=== PATIENT | female | born 1965 | race Caucasian/White ===

== ENCOUNTER → 2018-04-21 07:04 | Outpatient (CLI) | payer OTHER, SELFPAY ==
--- NOTE | 2018-04-21 07:07 | CT_ITS ---
STUDY: CT BRAIN WITHOUT CONTRAST REASON FOR EXAM: Female, 52 years old. Left occipital and temporal headaches. History of migraines. RADIATION DOSAGE (If Supplied By Facility): CTDIvol = ( 44.99 ) mGy, DLP = ( 745.49 ) mGycm TECHNIQUE: Transaxial CT imaging of the brain was performed without administration of intravenous contrast material. Individualized dose optimization techniques were used for this CT. COMPARISON: None. FINDINGS: Normal soft tissue structures. Normal calvarium. Normal size ventricles and extra-axial spaces for the patient's age. Normal white matter tracts of the cerebral hemispheres. Normal basal ganglia and thalami. Normal brainstem. Normal cerebellum. There is no intracranial hemorrhage. There are no findings of an acute ischemic infarction. Normal visualized paranasal sinuses. CT/Brain/Head without Contrast IMPRESSION: Normal unenhanced CT scan of the brain. Electronically Signed: Rizwan Odonnell MD at 10:09 EDT Tel [phone], Service support ,
== END ==
PROVIDERS: Family Provider Internal Medicine; PCP Internal Medicine; Visit Provider Internal Medicine
DX: R51 Headache (principal)
CPT/HCPCS: 70450

== ENCOUNTER → 2018-09-16 08:15 | Outpatient (CLI) | payer OTHER, SELFPAY ==
--- NOTE | 2018-09-16 08:17 | RAD_ITS ---
STUDY: X-RAY - RIGHT SHOULDER REASON FOR EXAM: Female, 53 years old. Chronic pain. Recent fall. TECHNIQUE: 3 view(s) of the shoulder. COMPARISON: None. FINDINGS: Normal glenohumeral articulation. Normal acromioclavicular joint. Normal acromion. Normal humeral head and visualized proximal humerus. The soft tissue structures are unremarkable. Normal visualized pulmonary apex. RAD/Shoulder min 2 Views IMPRESSION: Normal x-ray examination of the shoulder. Electronically Signed: Rizwan Odonnell MD at 14:11 EST Tel [phone], Service support ,
== END ==
PROVIDERS: Family Provider Internal Medicine; PCP Internal Medicine; Referring Provider Physician Assistant; Visit Provider Physician Assistant
DX: M25.511 Pain in right shoulder (principal)
CPT/HCPCS: 73030

== ENCOUNTER → 2018-09-24 07:12 | Outpatient (CLI) | payer OTHER, SELFPAY ==
--- NOTE | 2018-09-24 07:13 | MRI_ITS ---
STUDY: MRI RIGHT SHOULDER REASON FOR EXAM: Pain extending down right arm, limited range of motion. TECHNIQUE: Standardized fat and water weighted pulse sequences were obtained in all 3 orthogonal planes. COMPARISON: Radiographs 09/16/2018. FINDINGS: There is mild supraspinatus tendinosis and a very small intrasubstance partial-thickness tear of the distal anterior supraspinatus tendon at the greater tuberosity insertion (T2 coronal image 14). Normal subscapularis tendon. Normal teres minor tendon. Normal supraspinatus muscle. Normal infraspinatus muscle. Normal subscapularis muscle. Normal teres minor muscle. Normal glenohumeral articulation. There is an enchondroma in the humeral head (T2 coronal image 6) measuring 1.4 cm in length. Normal biceps labral complex. Normal intracapsular long biceps tendon. Normal labrum. Normal capsulo- ligamentous complex. There is acromioclavicular arthrosis with a small undersurface osteophyte of the distal clavicle effacing the subacromial fat (T2 sagittal image 16). There is a Type I morphology (flat undersurface), with a neutral orientation. There is a small volume of subacromial-subdeltoid bursal fluid (T2 coronal images 6-13). Normal visualized coracohumeral and coracoacromial ligaments. Normal deltoid muscle. Normal trapezius muscle. MRI/Upper Ext Joint Only(Routine) IMPRESSION: Very small intrasubstance partial-thickness tear and mild tendinosis of the supraspinatus tendon. Acromioclavicular arthrosis. Mild subacromial-subdeltoid bursitis. Enchondroma in the humeral head. No demonstrated tear of the long biceps tendon. Electronically Signed: Baldemar Renee MD at 8:34 EST Tel , Service support ,
--- OUTSIDE RECORDS SUMMARY | 2018-11-10 02:26 | XMS RPT_ITS ---
:1965 External Reference #:[id number] Author Organization OHIP Care Team Providers Name Role Phone SYDNEY LOPEZ Attending Unavailable SYDNEY LOPEZ Referring Unavailable SYDNEY LOPEZ Referring Unavailable Wayt, Chas Attending Unavailable Wayt, Chas Referring Unavailable Shayna, Muna Primary Care Unavailable Wayt, Chas Attending Unavailable Shayna, Muna Referring Unavailable Shayna, Muna Attending Unavailable Shayna, Muna Referring Unavailable Shayna, Muna Primary Care Unavailable Wayt, Chas Attending Unavailable Shayna, Muna Referring Unavailable Wayt, Chas Attending Unavailable Wayt, Chas Referring Unavailable Shayna, Muna Primary Care Unavailable PROBLEMS PROBLEMS DATE TYPE CONDITION / CODE ATTENDING STATUS SOURCE 10/22/2018 Active Unknown / [place] Active [facility] UNK(Unknown) GARCIA, [facility] SYDNEY Repository 09/24/2018 Unknown M75.101 - [place] Active [place] [facility] rotator cuff tear Hospital or rupture of Repository right shoulder, not specified as traumatic / M75.101(ICD-10) 09/16/2018 Unknown M25.511 - Pain in [place] Active [facility] right shoulder / [facility] M25.511(ICD-10) Hospital Repository 08/06/2018 Active Encounter for NA Active [facility] screening [facility] mammogram for Repository malignant neoplasm of breast / Z12.31(ICD-10) 04/21/2018 Unknown R51 - Headache / Shayna, Active [facility] R51(ICD-10) [facility] Repository PROCEDURES PROCEDURES No Procedure Records FoundRESULTS RESULTS PROGRESS Observed: 10/22/2018 Status: COMPLETED Source: [place] 8:54 AM [facility] RE[facility]IT[facility] HNO ID: [id number] Author: Sydney Garcia Service: (none) Author Type: Physician Type: Progress Notes Filed: 10/22/2018 9:10 AM Note Text: Leelee Pineda is a 53 year old who presents for her annual gynecologic exam without complaints. Postmenopausal: Yes since age 52 LMP 09/2017 HRT use: No. Last Pap: 2016 normal HPV: 2016 negative History of abnormal pap: No Last mammogram: 2017 normal History of abnormal mammogram: No Sexually active: Yes History of STDS: None Patient concerns for STD exposure: No. Pain with intercourse: No Postcoital bleeding: Yes - one time light pink spotting Hot flashes: Yes Night sweats: Yes Vaginal dryness: Yes Diet: balanced- low carb Exercise: routine Obstetric History T2 L2 SAB0 TAB0 Ectopic1 Multiple0 Live Births0 PAST MEDICAL HISTORY Diagnosis Date - Abdominal pain, unspecified site Cholecystitis - no stones - Acute gastritis without mention of hemorrhage - Acute, but ill-defined, cerebrovascular disease 2002 TIAs - Heart attack (HCC) - Melanoma of skin, site unspecified 2009 Malignant melanoma in situ-- - Migraine, unspecified, with intractable migraine, so stated, without mention of status migrainosus Migraine - Occlusion and stenosis of carotid artery without mention of cerebral infarction Carotid Artery Occlusion - no infarct - PMH - PAST MEDICAL HISTORY OF Insulin intollerent - Snoring PAST SURGICAL HISTORY Procedure Laterality Date - COLONOSCOP W/ OR W/O BRSH SPEC 09/21/16 Colonoscopy - EGD W/O BRSH SPECIMEN W/BX 11/22/09 Minimal antral gastritis - LIGATE FALLOPIAN TUBE Tubal ligation - MAL LESION TRUNK,ARM,LEG 0.6-1.0CM 01/03/10 Re-excision right upper ant chest melanoma in situ - MAL LESION TRUNK,ARM,LEG 1.1-2.0 CM 11/23/09 Exc. right upper ant. chest skin lesion - RIGHT HEART CATHETERIZATION Cardiac cath, R heart [normal][ - STEREO LOC FOR CORE BRST BX LT 5-18-11 LEFT FAMILY HISTORY Problem Relation Age of Onset - Cancer Mother Lung - other (Lupus) Mother - Heart Maternal Grandmother - Hypertension Maternal Grandmother - Heart Maternal Grandfather - other (Depression) Other Both Maternal Grandparents - Breast Cancer Maternal Aunt - Breast Cancer Maternal Aunt SOCIAL HISTORY Social History Substance Use Topics - Smoking status: Former Smoker - Smokeless tobacco: Never Used - Alcohol use 1.5 oz/week 1 Glasses of Wine (5oz) per week Comment: Seldom REVIEW OF SYSTEMS Abdomen: No bloating, early satiety, indigestion, or increased flatulence. ++ constipation Bladder: No dysuria, gross hematuria, urinary frequency, urinary urgency, or incontinence Breast: No breast lumps, nipple d/c, overlying skin changes, redness or skin retraction and does report some breast tenderness Allergies and current medication updated:Yes EXAM: BP 128/84 Ht 5' 5 (1.65m) Wt 175 lb (79.4kg) LMP 07/08/2016 BMI 29.12 kg/(m2). GENERAL: pleasant, female in no apparent distress HEENT: Normocephalic, atraumatic, mucus membranes moist and no lesions NECK: Supple, full range of motion, no adenopathy and thyroid normal DERMATOLOGY: Normal, without lesions, non-icteric and non-hirsute BREAST: soft, non-tender, symmetric, no dominant mass, normal nipple-areolar complex, no lymphadenopathy and no nipple discharge ABDOMEN: soft, non-tender and no masses PELVIC: external genitalia normal, normal Bartholin's glands, urethra, [place]'s glands, no vulvar lesions, no cervical lesions, good vaginal support, physiologic discharge present, normal appearing perineal body and perianal region BIMANUAL: uterus normal size, shape and consistency, no adnexal masses and non-tender RECTOVAGINAL: deferred. NEURO: alert and oriented x3,exam grossly non-focal EXTREMITIES: normal ASSESSMENT/PLAN: 1) Health maintenance: Pap/HPV up to date. Mammogram ordered Mammogram up to date Nutrition, exercise and routine health maintenance exams reviewed. Calcium/Vitamin D supplementation information provided. Colon cancer screening: up to date with screening 2) Follow up one year or sooner as needed Sydney Vazquez MD PROGRESS Observed: 10/22/2018 Status: COMPLETED Source: [place] 8:42 AM [facility] HNO ID: [id number] Author: Kathy Spicer Ma Service: (none) Author Type: (none) Type: Progress Notes Filed: 10/22/2018 9:10 AM Note Text: [place] Machine Operator offered: Patient declines. CNOV Observed: 10/22/2018 Status: COMPLETED Source: [place] 8:40 AM [facility] Office Visit (WOOB) LEELEE PINEDA ([id number]) 1965 F Date Time Provider Department 10/22/18 8:40 AM SYDNEY LOPEZ WOKEYA During your visit today, we recorded the following information about you: Blood pressure Weight Height 128/84 79.4 kg 1.651 m Kathy Zhang Coleman Ma 10/22/2018 9:10 AM Signed [place] Machine Operator offered: Patient declines. Sydney Vazquez MD 10/22/2018 9:10 AM Signed Leelee Pineda is a 53 year old who presents for her annual gynecologic exam without complaints. Postmenopausal: Yes since age 52 LMP 09/2017 HRT use: No. Last Pap: 2015 normal HPV: 2015 negative History of abnormal pap: No Last mammogram: 2017 normal History of abnormal mammogram: No Sexually active: Yes History of STDS: None Patient concerns for STD exposure: No. Pain with intercourse: No Postcoital bleeding: Yes - one time light pink spotting Hot flashes: Yes Night sweats: Yes Vaginal dryness: Yes Diet: balanced- low carb Exercise: routine Obstetric History T2 L2 SAB0 TAB0 Ectopic1 Multiple0 Live Births0 PAST MEDICAL HISTORY Diagnosis Date - Abdominal pain, unspecified site Cholecystitis - no stones - Acute gastritis without mention of hemorrhage - Acute, but ill-defined, cerebrovascular disease 2002 TIAs - Heart attack (HCC) - Melanoma of skin, site unspecified 2009 Malignant melanoma in situ-- - Migraine, unspecified, with intractable migraine, so stated, without mention of status migrainosus Migraine - Occlusion and stenosis of carotid artery without mention of cerebral infarction Carotid Artery Occlusion - no infarct - PMH - PAST MEDICAL HISTORY OF Insulin intollerent - Snoring PAST SURGICAL HISTORY Procedure Laterality Date - COLONOSCOP W/ OR W/O BRS SPEC 09/21/16 Colonoscopy - EGD W/O [facility] SPECIMEN W/BX 11/22/09 Minimal antral gastritis - LIGATE FALLOPIAN TUBE Tubal ligation - MAL LESION TRUNK,ARM,LEG 0.6-1.0CM 01/03/10 Re-excision right upper ant chest melanoma in situ - MAL LESION TRUNK,ARM,LEG 1.1-2.0 CM 11/23/09 Exc. right upper ant. chest skin lesion - RIGHT HEART CATHETERIZATION Cardiac cath, R heart [normal][ - STEREO LOC FOR CORE BRST BX LT 5-18-11 LEFT FAMILY HISTORY Problem Relation Age of Onset - Cancer Mother Lung - other (Lupus) Mother - Heart Maternal Grandmother - Hypertension Maternal Grandmother - Heart Maternal Grandfather - other (Depression) Other Both Maternal Grandparents - Breast Cancer Maternal Aunt - Breast Cancer Maternal Aunt SOCIAL HISTORY Social History Substance Use Topics - Smoking status: Former Smoker - Smokeless tobacco: Never Used - Alcohol use 1.5 oz/week 1 Glasses of Wine (5oz) per week Comment: Seldom REVIEW OF SYSTEMS Abdomen: No bloating, early satiety, indigestion, or increased flatulence. ++ constipation Bladder: No dysuria, gross hematuria, urinary frequency, urinary urgency, or incontinence Breast: No breast lumps, nipple d/c, overlying skin changes, redness or skin retraction and does report some breast tenderness Allergies and current medication updated:Yes EXAM: BP 128/84 Ht 5' 5 (1.65m) Wt 175 lb (79.4kg) LMP 07/08/2016 BMI 29.12 kg/(m2). GENERAL: pleasant, female in no apparent distress HEENT: Normocephalic, atraumatic, mucus membranes moist and no lesions NECK: Supple, full range of motion, no adenopathy and thyroid normal DERMATOLOGY: Normal, without lesions, non-icteric and non-hirsute BREAST: soft, non-tender, symmetric, no dominant mass, normal nipple-areolar complex, no lymphadenopathy and no nipple discharge ABDOMEN: soft, non-tender and no masses PELVIC: external genitalia normal, normal Bartholin's glands, urethra, [place]'s glands, no vulvar lesions, no cervical lesions, good vaginal support, physiologic discharge present, normal appearing perineal body and perianal region BIMANUAL: uterus normal size, shape and consistency, no adnexal masses and non-tender RECTOVAGINAL: deferred. NEURO: alert and oriented x3,exam grossly non-focal EXTREMITIES: normal ASSESSMENT/PLAN: 1) Health maintenance: Pap/HPV up to date. Mammogram ordered Mammogram up to date Nutrition, exercise and routine health maintenance exams reviewed. Calcium/Vitamin D supplementation information provided. Colon cancer screening: up to date with screening 2) Follow up one year or sooner as needed MD Sydney Pastor MD 10/22/2018 9:00 AM Signed Calcium and Vitamin D Supplementation (from the National Institutes of Health Office of Dietary Supplements 2010) Calcium is required by the body for blood vessel, muscle, hormone and nerve functioning. Most of the body's calcium is stored in the bones and teeth where it supports structure and function. Bone is continuously broken down and reformed. When bone breakdown exceeds formation, especially in postmenopausal women, bone loss can increase the risk of osteoporosis and fractures. In addition to low calcium intake, women who smoke, have a family history of osteoporosis, are thin, or , or who take certain medications such as cancer chemotherapy, seizure mediations and steroids are at increased risk of osteoporosis. The calcium requirements in women change with age. The National Institutes of Health (NIH) recommends: 1000mg elemental calcium for premenopausal women age 19-50 1200mg elemental calcium for postmenopausal women and all women over 50 Milk, yogurt, and cheese are rich natural sources of calcium and are the major food contributors in the [place]. For example, 8oz of milk (whole, lowfat or skim) contains about 300mg calcium, 8oz of yogurt contains 415mg. Nondairy sources include salmon and sardines and vegetables, such as Latvian cabbage, kale, and broccoli. Foods fortified with calcium include many fruit juices, tofu and cereals. For more food calcium content information, visit http://ods.od.nih.gov/factsheets/calcium. Calcium supplements come in several different forms. Remember that the recommendations are for millgrams (mg) of elemental calcium which may be less than the total weight of the supplement. The amount of elemental calcium is required to be printed on the label. Calcium carbonate is the least expensive form. It must be taken on a full stomach to be properly absorbed. Some patients may experience gas or constipation. Calcium phosphate and calcium citrate may be taken either with or without food and tend to have less side effects but are generally more expensive. Because of its ability to neutralize stomach acid, calcium carbonate is found in some ctzu-psk-gsvlyqn antacid products, such as Tums? and Rolaids?. Depending on its strength, each chewable pill or softchew provides 200 to 400 mg of elemental calcium. The percentage of calcium absorbed depends on the total amount of elemental calcium consumed at one time. Absorption is highest in doses <500mg. So a woman who takes 1,000mg/day of calcium from supplements should split the dose and take 500mg at two separate times during the day. Too much calcium can cause kidney stones, constipation, difficulty absorbing other nutrients and calcium buildup in blood vessels. Women under 50 should not exceed 2500mg/day (2000mg/day for women over 50) of calcium from food and supplements. Excessive alcohol and caffeine intake can inhibit absorption of calcium. Calcium can reduce the absorption of some medications if taken at the same time of day (bisphosphonates, thyroid medication, Phenytoin and other seizure medications, some antibiotics and iron supplements). Vitamin D promotes calcium absorption in the gut and maintains adequate blood levels of calcium and phosphate for normal bone growth and bone remodeling. Vitamin D also helps regulate cell growth as well as nerve, muscle and immune system function. Vitamin D is produced in the skin as a result of ultraviolet sunlight rays and must be altered in the liver and kidney to become its active form. Recommended intake according to the National Institutes of Health is 600 International Units (IU) for girls and women ages 1-70 and 800 IU for women over 70. Very few foods in nature contain vitamin D. The flesh of fatty fish (such as salmon, tuna, and mackerel) and fish liver oils are among the best sources. Small amounts of vitamin D are found in beef liver, cheese, mushrooms and egg yolks. Most people meet at least some of their vitamin D needs through exposure to sunlight. Season, time of day, length of day, cloud cover, smog, skin melanin content, and sunscreen are among the factors that affect UV radiation exposure and vitamin D synthesis. Despite the importance of the sun for vitamin D synthesis, it is prudent to limit exposure of skin to sunlight and avoid tanning beds. UV radiation is a carcinogen responsible for most of the estimated 1.5 million skin cancers that occur annually in the [place]. Lifetime cumulative UV damage to skin is also responsible for some age-associated dryness and other cosmetic changes. In supplements and fortified foods, vitamin D is available in two forms, D2 (ergocalciferol) and D3 (cholecalciferol). The two are equivalent at normal supplement doses. For women who require high supplement doses because of vitamin D deficiency, D3 may work better to raise blood levels. Some medications can prevent proper absorption of Vitamin D. These include laxatives, corticosteroids like prednisone, the seizure drugs phenobarbital and phenytoin, the weight-loss drug orlistat ( Xenical? and AlliTM) and the cholesterol-lowering drug cholestyramine (Questran?, LoCholest?, and Prevalite?). Talk to your doctor about adjusting your recommended daily vitamin D dosage if you take these medications. You should not exceed 4000 mg of vitamin D supplementation daily unless specifically prescribed by your doctor. ACOG Screening Guidelines (2015) The following health screening schedule is recommended by the [place] [employer] (ACOG). Some of these tests may be ordered or performed by your primary care doctor. Pap test screening The pap test looks at cells on the cervix (the opening from the vagina to the uterus) to look for cancer or pre-cancerous changes. These changes are caused by the human papillomavirus (HPV). Studies estimate that half of all women will test positive for this virus within 3 years of starting sexual activity. For young women with a normal immune system, 90% of HPV infections will resolve within 2 years. There is a vaccine available against some forms of HPV. This is recommended for girls and women age 9-26 and is a series of 3 injections over 6 months. Because this vaccine does not protect against all HPV types which can cause cervical cancer, women who received the vaccine still need pap tests. Pap smear screening should be started at age 21. The pap test should be done every 3 years from age 21-29. From age 30-65, pap smears can be done every 5 years if HPV test is negative or every 3 years if HPV testing is not done. For women over the age of 65, ACOG recommends against screening women who have had adequate prior screening and are not otherwise at high risk for cervical cancer. Women who have had a hysterectomy also do not need routine pap smear screening unless the pap smear was done for a cervical cancer or moderate to severe dysplasia. Breast cancer screening Mammogram should be performed every 1-2 years starting at age 40 and every year starting at age 50. Screening may be started earlier depending on family history. Cholesterol screening Lipid panel (cholesterol test) should be checked every 5 years starting at age 45. Diabetes screening Fasting glucose (blood sugar) test should be performed every 3 years starting at age 45. Colorectal cancer screening Starting at age 50, women should have a screening colonoscopy at least every 10 years. Screening may be started earlier depending on family history. Thyroid screening Thyroid function test (TSH) should be checked every 5 years starting at age 50. Bone mineral density screening All postmenopausal women age 65 and over and postmenopausal women with risk factors for osteoporosis should have a bone mineral density test performed. Risk factors include race, family history of osteoporosis, personal history of fractures, poor nutrition, smoking, heavy alcohol use, early menopause, low calcium intake and low body weight. Certain medical conditions and long-term use of some medications may also increase risk. Many women experience vaginal dryness which can cause discomfort with exercise and sexual activity, especially vaginal intercourse. Common causes of vaginal dryness include menopause, , control pills, cancer treatments and other medications. There are many eaip-dlm-rjfjydm products that are available to treat this condition. Lubricants are a temporary measure to minimize friction and irritation and allow for vaginal intercourse. There are different types of lubricants. Water-based lubricants dry quickly and usually will need to be reapplied during sexual activity. Oil-based lubricants are not compatible with condoms. Silicone-based lubricants should be used with caution in the shower as they can make floors slippery. Household food oils such as olive oil, coconut oil, corn oil and Cristco may increase the risk of vaginal infections such as bacterial vaginosis and yeast. Pre-seed is designed for patients trying to conceive as it does not affect sperm motility. You may need to try several different brands of lubricant until you find the one that works best for you. When choosing a lubricant, avoid those that contain perfumes, flavors or ?warming? ingredients. Benzyl alcohol and glycerin can cause drying and irritation and parabens may be harmful to health. Look for 510(k) Clearance which means that all ingredients are considered safe by the FDA. You can search for approved products on the FDA website at http://www.accessdata.fda.gov/scripts/cdrh/cfdocs/cfpmn/pmn.cfm. Examples of 510(k) cleared lubricants include Uberlube, Sylk, Good Clean Love and Astroglide. Vaginal moisturizers such as Luvena and Replens are designed for regular use several times a week for long-term relief of vaginal dryness. Some formulations contain a pre-biotic to help maintain vaginal pH and protect against bacterial vaginosis and yeast. For post-menopausal women who have persistent vaginal dryness, prescription treatments are available including vaginal estrogen and vaginal laser therapy. Talk to your doctor if your symptoms are not resolved by lubricant or moisturizer use. Referring Provider: SYDNEY OLPEZ [[id number]] Allergies As of Date: 10/22/2018 Noted Allergy Reaction SEASONAL ALLERGIES 01/19/2013 9 - Itching Comments: Watery Eyes, Coughing, Sneezing Date Reviewed: 10/22/2018 Reviewed by: Kathy Spicer Ma - Fully Assessed Reason for Visit: Yearly Exam [187] Primary Visit Diagnosis:Encounter for gynecological examination without abnormal finding [Z01.419] Other Visit Diagnosis:Encounter for screening mammogram for malignant neoplasm of breast [Z12.31] Order(s):[facility] SCREENING [facility] [[id number]] Order #: [id number] FUTURE Prescriptions as of 10/22/2018 Sig: LORATADINE 10 MG TABLET Take 10 mg by mouth once fausto* OMEPRAZOLE 20 MG CAPSULE,JESSICA* Take 20 mg by mouth once fausto* GLUCOPHAGE 500 MG TABLET Take one(1) tablet daily. Problem List As Of Date 10/22/2018 Noted Resolved Excessive or frequent menstruation [N92.0] INVALID FOR*02/15/2014 Dysmenorrhea [N94.6] INVALID FOR*12/13/2009 Urge Incontinence [N39.41] INVALID FOR*12/13/2009 Urgency of Urination [R39.15] INVALID FOR*12/13/2009 Cystocele, Midline [N81.11] INVALID FOR*12/13/2009 Abdominal Pain [R10.9] INVALID FOR*12/13/2009 Gastritis [K29.70] INVALID FOR* Melanoma in Situ [D03.9] INVALID FOR* Lump or mass in breast [N63.0] INVALID FOR*01/17/2012 Abnormal mammogram, unspecified [R92.8] INVALID FOR* Dysmenorrhea [N94.6] INVALID FOR*02/15/2014 Colon cancer screening [Z12.11] INVALID FOR*09/21/2016 Other instructions from your clinician: Calcium and Vitamin D Supplementation (from the National Institutes of Health Office of Dietary Supplements 2010) Calcium is required by the body for blood vessel, muscle, hormone and nerve functioning. Most of the body's calcium is stored in the bones and teeth where it supports structure and function. Bone is continuously broken down and reformed. When bone breakdown exceeds formation, especially in postmenopausal women, bone loss can increase the risk of osteoporosis and fractures. In addition to low calcium intake, women who smoke, have a family history of osteoporosis, are thin, or , or who take certain medications such as cancer chemotherapy, seizure mediations and steroids are at increased risk of osteoporosis. The calcium requirements in women change with age. The National Institutes of Health (NIH) recommends: 1000mg elemental calcium for premenopausal women age 19-50 1200mg elemental calcium for postmenopausal women and all women over 50 Milk, yogurt, and cheese are rich natural sources of calcium and are the major food contributors in the [place]. For example, 8oz of milk (whole, lowfat or skim) contains about 300mg calcium, 8oz of yogurt contains 415mg. Nondairy sources include salmon and sardines and vegetables, such as Latvian cabbage, kale, and broccoli. Foods fortified with calcium include many fruit juices, tofu and cereals. For more food calcium content information, visit http://ods.od.nih.gov/factsheets/calcium. Calcium supplements come in several different forms. Remember that the recommendations are for millgrams (mg) of elemental calcium which may be less than the total weight of the supplement. The amount of elemental calcium is required to be printed on the label. Calcium carbonate is the least expensive form. It must be taken on a full stomach to be properly absorbed. Some patients may experience gas or constipation. Calcium phosphate and calcium citrate may be taken either with or without food and tend to have less side effects but are generally more expensive. Because of its ability to neutralize stomach acid, calcium carbonate is found in some pslw-rmm-vcmwvet antacid products, such as Tums? and Rolaids?. Depending on its strength, each chewable pill or softchew provides 200 to 400 mg of elemental calcium. The percentage of calcium absorbed depends on the total amount of elemental calcium consumed at one time. Absorption is highest in doses <500mg. So a woman who takes 1,000mg/day of calcium from supplements should split the dose and take 500mg at two separate times during the day. Too much calcium can cause kidney stones, constipation, difficulty absorbing other nutrients and calcium buildup in blood vessels. Women under 50 should not exceed 2500mg/day (2000mg/day for women over 50) of calcium from food and supplements. Excessive alcohol and caffeine intake can inhibit absorption of calcium. Calcium can reduce the absorption of some medications if taken at the same time of day (bisphosphonates, thyroid medication, Phenytoin and other seizure medications, some antibiotics and iron supplements). Vitamin D promotes calcium absorption in the gut and maintains adequate blood levels of calcium and phosphate for normal bone growth and bone remodeling. Vitamin D also helps regulate cell growth as well as nerve, muscle and immune system function. Vitamin D is produced in the skin as a result of ultraviolet sunlight rays and must be altered in the liver and kidney to become its active form. Recommended intake according to the National Institutes of Health is 600 International Units (IU) for girls and women ages 1-70 and 800 IU for women over 70. Very few foods in nature contain vitamin D. The flesh of fatty fish (such as salmon, tuna, and mackerel) and fish liver oils are among the best sources. Small amounts of vitamin D are found in beef liver, cheese, mushrooms and egg yolks. Most people meet at least some of their vitamin D needs through exposure to sunlight. Season, time of day, length of day, cloud cover, smog, skin melanin content, and sunscreen are among the factors that affect UV radiation exposure and vitamin D synthesis. Despite the importance of the sun for vitamin D synthesis, it is prudent to limit exposure of skin to sunlight and avoid tanning beds. UV radiation is a carcinogen responsible for most of the estimated 1.5 million skin cancers that occur annually in the [place]. Lifetime cumulative UV damage to skin is also responsible for some age-associated dryness and other cosmetic changes. In supplements and fortified foods, vitamin D is available in two forms, D2 (ergocalciferol) and D3 (cholecalciferol). The two are equivalent at normal supplement doses. For women who require high supplement doses because of vitamin D deficiency, D3 may work better to raise blood levels. Some medications can prevent proper absorption of Vitamin D. These include laxatives, corticosteroids like prednisone, the seizure drugs phenobarbital and phenytoin, the weight-loss drug orlistat ( Xenical? and AlliTM) and the cholesterol-lowering drug cholestyramine (Questran?, LoCholest?, and Prevalite?). Talk to your doctor about adjusting your recommended daily vitamin D dosage if you take these medications. You should not exceed 4000 mg of vitamin D supplementation daily unless specifically prescribed by your doctor. ACOG Screening Guidelines (2015) The following health screening schedule is recommended by the [place] [employer] (ACOG). Some of these tests may be ordered or performed by your primary care doctor. Pap test screening The pap test looks at cells on the cervix (the opening from the vagina to the uterus) to look for cancer or pre-cancerous changes. These changes are caused by the human papillomavirus (HPV). Studies estimate that half of all women will test positive for this virus within 3 years of starting sexual activity. For young women with a normal immune system, 90% of HPV infections will resolve within 2 years. There is a vaccine available against some forms of HPV. This is recommended for girls and women age 9-26 and is a series of 3 injections over 6 months. Because this vaccine does not protect against all HPV types which can cause cervical cancer, women who received the vaccine still need pap tests. Pap smear screening should be started at age 21. The pap test should be done every 3 years from age 21-29. From age 30-65, pap smears can be done every 5 years if HPV test is negative or every 3 years if HPV testing is not done. For women over the age of 65, ACOG recommends against screening women who have had adequate prior screening and are not otherwise at high risk for cervical cancer. Women who have had a hysterectomy also do not need routine pap smear screening unless the pap smear was done for a cervical cancer or moderate to severe dysplasia. Breast cancer screening Mammogram should be performed every 1-2 years starting at age 40 and every year starting at age 50. Screening may be started earlier depending on family history. Cholesterol screening Lipid panel (cholesterol test) should be checked every 5 years starting at age 45. Diabetes screening Fasting glucose (blood sugar) test should be performed every 3 years starting at age 45. Colorectal cancer screening Starting at age 50, women should have a screening colonoscopy at least every 10 years. Screening may be started earlier depending on family history. Thyroid screening Thyroid function test (TSH) should be checked every 5 years starting at age 50. Bone mineral density screening All postmenopausal women age 65 and over and postmenopausal women with risk factors for osteoporosis should have a bone mineral density test performed. Risk factors include race, family history of osteoporosis, personal history of fractures, poor nutrition, smoking, heavy alcohol use, early menopause, low calcium intake and low body weight. Certain medical conditions and long-term use of some medications may also increase risk. Many women experience vaginal dryness which can cause discomfort with exercise and sexual activity, especially vaginal intercourse. Common causes of vaginal dryness include menopause, , control pills, cancer treatments and other medications. There are many elcc-myh-txyddrz products that are available to treat this condition. Lubricants are a temporary measure to minimize friction and irritation and allow for vaginal intercourse. There are different types of lubricants. Water-based lubricants dry quickly and usually will need to be reapplied during sexual activity. Oil-based lubricants are not compatible with condoms. Silicone-based lubricants should be used with caution in the shower as they can make floors slippery. Household food oils such as olive oil, coconut oil, corn oil and Cristco may increase the risk of vaginal infections such as bacterial vaginosis and yeast. Pre-seed is designed for patients trying to conceive as it does not affect sperm motility. You may need to try several different brands of lubricant until you find the one that works best for you. When choosing a lubricant, avoid those that contain perfumes, flavors or ?warming? ingredients. Benzyl alcohol and glycerin can cause drying and irritation and parabens may be harmful to health. Look for 510(k) Clearance which means that all ingredients are considered safe by the FDA. You can search for approved products on the FDA website at http://www.accessdata.fda.gov/scripts/cdrh/cfdocs/cfpmn/pmn.cfm. Examples of 510(k) cleared lubricants include Uberlube, Sylk, Good Clean Love and Astroglide. Vaginal moisturizers such as Luvena and Replens are designed for regular use several times a week for long-term relief of vaginal dryness. Some formulations contain a pre-biotic to help maintain vaginal pH and protect against bacterial vaginosis and yeast. For post-menopausal women who have persistent vaginal dryness, prescription treatments are available including vaginal estrogen and vaginal laser therapy. Talk to your doctor if your symptoms are not resolved by lubricant or moisturizer use. Disposition: Return in 1 year (on 10/22/2019) for Annual Exam. Follow-up and Disposition History Recorded Encounter Status:Closed by SYDNEY GARCIA MD on 10/22/18 ORTHOPEDIC VISIT Observed: 09/29/2018 Status: F Source: [place] REPORT 12:04 PM [facility] REPOSITORY [facility] [address] [place] [address] OFFICE VISIT Date of Service: 09/29/18 MR#: [id number] Acct: [id number] Name: LEELEE PINEDA Rep #: [id number] : 1965 Provider: JAMES Valente Age/Sex: 53/F Location: [facility] [place].SMO Status: Signed Intake Intake Visit Reasons: RIGHT SHOULDER Is patient in pain?: Yes Pain scale (1-10): 5 Allergies No Known Allergies Allergy (Verified 04/19/15 21:20) Medications Cephalexin [Keflex] 500 mg PO Q6 #40 cap 04/19/15 [Rx] Loratadine [Claritin] 10 mg PO DAILY 04/19/15 [History Confirmed 04/19/15] Metformin HCl [Glucophage] 500 mg PO DAILY 04/19/15 [History Confirmed 04/19/15] Omeprazole [Prilosec] 20 mg PO DAILY 04/19/15 [History Confirmed 04/19/15] Oxycodone HCl/Acetaminophen [Percocet 5/325] 1 - 2 tab PO Q4H PRN PRN #20 tab 04/19/15 [Rx] PFSH Social History Smoking Status: Never smoker HPI RIGHT SHOULDER: Details: LEELEE PINEDA is a 53 year old F here today for f/u right shoulder MRI. She continues to have increased pain with any use or rom and even at rest when her arm is close to her body she has discomfort. Her mri is here for review. ROS Musc Reports as per HPI, Reports limited joint movement, Reports stiffness, Reports joint pain, Reports muscle weakness Ortho Exam Right Shoulder Skin/Wound: No ecchymosis Contralateral Normal: Yes Testing: Positive Hawkin's, Neer's, Speed's and AROM-External Rotation at side 0-60; negative AROM-Forward Elevation 0-180 (120), Sulcus Sign or empty can Internal Rotation: Tip of Scapula SHOULDER: Patient has no localized or generalized swelling of the shoulder at this time. There are no other bony abnormalities noted on inspection. Patient has evident impingement signs. She still has some decreased in her range of motion most specifically the forward elevation. Internal and external rotation as well as abduction are actually normal. She still has some minor decrease in strength against resistance Compared to the left shoulder. Office Procedures Kenalog 40 mg/mL suspension for injection (triamcinolone acetonide) 80 mg Intra-Articular ONCE Injections Yes Subacromial Injection Right Office Meds Neftali Performing Provider: JAMES Sandra Administered by: JAMES Sandra on 09/29/18 10:36 Dose Route Admin Location Lot Number Expiration DateNDC Small Engine Specialist 80 mg Intra-Articularright shoulder [id number] 09/13/19 9913-4092-94 [facility] Assessment AND Plan Problems 1. Impingement syndrome of right shoulder M75.41 2. Subacromial bursitis of right shoulder joint M75.51 Plan Today in the office we did review patient's MRI which shows a couple little things but no major finding that would warrant/indicate the need for surgery at this time. She does have signs of rotator cuff impingement/tendinosis with a very small intrasubstance tear. She does have also have some AC arthrosis as well. We did discuss anatomy and physiology of the shoulder including the rotator cuff, bursa, and surrounding structures. We discussed the finding of an enchondroma and actually what in the enchondroma is. After discussion of her MRI findings we discussed treatment options which include doing nothing, continuing with conservative care such as ice and anti-inflammatory, and injection, physical therapy and or surgical intervention which at this time does not appear to be warranted. Patient at this time would like to proceed with an injection into the right subacromial space. We discussed risks and benefits of the injection which patient understands. Questions were answered and consent was signed. Injection was given under normal sterile fashion into the subacromial space using a posterior approach. Patient tolerated procedure fine without any comp occasions or concerns. Patient was also given a prescription for physical therapy to be done along with the injection. We will see her back in 6-8 weeks following physical therapy to check on progress. She can notify sooner of any worsening pains, decreased motion or any other signs or symptoms. This note was generated with getuppation software. It may contain incorrect words, spelling, and punctuation that were not noted in checking the note before signing. Orders Orders: Medications Discontinued: Kenalog (triamcinolone acetonide) Disco80 mg (2 mL) Intra- Articular ONCE 2 mL 0RFM75.41 ntinued Reason: Office Medication has bee NS n Documented as given Coding Level of Care Code Off vis,est,level 2 Diagnoses Impingement syndrome of right shoulder M75.41 Subacromial bursitis of right shoulder joint M75.51 Additional Codes in store marketing associate.sub ([id number]) 09/29/18 1204 <Electronically signed by Chas RAMIREZ> Date Chas RAMIREZ Cosigner Signature: Date (if applicable) CC: UPPER EXT JOINT Observed: 09/24/2018 Status: F Source: [place] ONLY(ROUTINE) 7:13 AM [facility] REPOSITORY [facility] Imaging Services [address] [place] [id number] Upper Ext Joint Only(Routine) MR#: [id number] Acct: [id number] Name: LEELEE PINEDA Rep #: [id number] : 1965 F 53 From: Baldemar Renee MD PCP: Muna Corral DO Status: REG CLI Study: Upper Ext Joint Only(Routine) Date of Exam: 09/24/18 Exam# [id number] Ordering Dr: Chas Valente STUDY: MRI RIGHT SHOULDER REASON FOR EXAM: Pain extending down right arm, limited range of motion. TECHNIQUE: Standardized fat and water weighted pulse sequences were obtained in all 3 orthogonal planes. COMPARISON: Radiographs 09/16/2018. FINDINGS: There is mild supraspinatus tendinosis and a very small intrasubstance partial-thickness tear of the distal anterior supraspinatus tendon at the greater tuberosity insertion (T2 coronal image 14). Normal subscapularis tendon. Normal teres minor tendon. Normal supraspinatus muscle. Normal infraspinatus muscle. Normal subscapularis muscle. Normal teres minor muscle. Normal glenohumeral articulation. There is an enchondroma in the humeral head (T2 coronal image 6) measuring 1.4 cm in length. Normal biceps labral complex. Normal intracapsular long biceps tendon. Normal labrum. Normal capsulo- ligamentous complex. There is acromioclavicular arthrosis with a small undersurface osteophyte of the distal clavicle effacing the subacromial fat (T2 sagittal image 16). There is a Type I morphology (flat undersurface), with a neutral orientation. There is a small volume of subacromial-subdeltoid bursal fluid (T2 coronal images 6-13). Normal visualized coracohumeral and coracoacromial ligaments. Normal deltoid muscle. Normal trapezius muscle. MRI/Upper Ext Joint Only(Routine) IMPRESSION: Very small intrasubstance partial-thickness tear and mild tendinosis of the supraspinatus tendon. Acromioclavicular arthrosis. Mild subacromial-subdeltoid bursitis. Enchondroma in the humeral head. No demonstrated tear of the long biceps tendon. Electronically Signed: Baldemar Renee MD at 8:34 EST Tel , Service support , CC: JAMES Valente; Muna Corral DO Food And Beverage Server: Signed ORTHOPEDIC VISIT Observed: 09/18/2018 Status: F Source: [place] REPORT 9:12 AM [facility] REPOSITORY [facility] [address] [place] [address] OFFICE VISIT Date of Service: 09/16/18 MR#: [id number] Acct: [id number] Name: LEELEE PINEDA Rep #: [id number] : 1965 Provider: JAMES Valente Age/Sex: 53/F Location: [facility] [place].[facility] [place] Status: Signed Intake Intake Visit Reasons: RIGHT SHOULDER Is patient in pain?: Yes Allergies No Known Allergies Allergy (Verified 04/19/15 21:20) Medications Cephalexin [Keflex] 500 mg PO Q6 #40 cap 04/19/15 [Rx] Loratadine [Claritin] 10 mg PO DAILY 04/19/15 [History Confirmed 04/19/15] Metformin HCl [Glucophage] 500 mg PO DAILY 04/19/15 [History Confirmed 04/19/15] Omeprazole [Prilosec] 20 mg PO DAILY 04/19/15 [History Confirmed 04/19/15] Oxycodone HCl/Acetaminophen [Percocet 5/325] 1 - 2 tab PO Q4H PRN PRN #20 tab 04/19/15 [Rx] PFSH Social History Smoking Status: Never smoker HPI RIGHT SHOULDER: Details: LEELEE PINEDA is a 53 year old F here today for right shoulder pain, she has no known injury other than reaching into the cabinet and it popping. She has anterior shoulder pain with referred bicep pain with all rom, complains of catching. She is in a guarded position which is comfortable for her but she is experiencing n/t into the hand. Denies any xray, mri, injection or PT but is using ibuprofen that is not very helpful but heat and topical cream does give her some relief Ortho Exam Right Shoulder Skin/Wound: No ecchymosis Contralateral Normal: Yes Testing: Positive Hawkin's, Neer's, Speed's and AROM-External Rotation at side 0-60; negative AROM-Forward Elevation 0-180 (120), Sulcus Sign or empty can Internal Rotation: Tip of Scapula SHOULDER: Patient has no localized or generalized swelling of the shoulder at this time. There are no other bony abnormalities noted on inspection. Patient has evident impingement signs. She has some decreased in her range of motion most specifically the forward elevation. Internal and external rotation as well as abduction is actually normal. She does also have a positive Musselshell's test at this time. She does have some minor decrease in strength against resistance Compared to the left shoulder. Assessment AND Plan Problems 1. Acute pain of right shoulder M25.511 2. Impingement syndrome of right shoulder M75.41 3. Injury of right rotator cuff, initial encounter S46.001A Plan Obtained Xrays of patient's right shoulder. Personally reviewed Xrays. There is no obvious fracture, dislocation, or lucency noted. See chart for further details. Today in office patient has evidence impingement signs of rotator cuff as well as evident biceps involvement. She has a positive Musselshell's test as well and thus need to consider possible subscap/ labral pathology. This time with her decreased motion and decreased strength really recommend that we try and get an MRI approved to see the extent of damage in the rotator cuff and biceps area. Patient was also given home exercise program as we really need to start working on strength and range of motion of the shoulder. We did discuss formal physical therapy as well as a possible option. This note was generated with getuppation software. It may contain incorrect words, spelling, and punctuation that were not noted in checking the note before signing. Orders Orders: Coding Level of Care Code Off vis,est,level 3 Diagnoses Acute pain of right shoulder M25.511 Chronicity: acute Impingement syndrome of right shoulder M75.41 Injury of right rotator cuff, initial encounter S46.001A Encounter type: initial encounter Laterality: right 09/18/18 0912 <Electronically signed by Chas RAMIREZ> Date Chas RAMIREZ Cosigner Signature: Date (if applicable) CC: SHOULDER MIN 2 VIEWS Observed: 09/16/2018 Status: F Source: [place] 8:17 AM [facility] REPOSITORY [facility] Imaging Services [address] [place] [id number] Shoulder min 2 Views MR#: [id number] Acct: [id number] Name: LEELEE PINEDA Rep #: [id number] : 1965 F 53 From: Rizwan Odonnell MD PCP: Muna Corral DO Status: REG CLI Study: Shoulder min 2 Views Date of Exam: 09/16/18 Exam# [id number] Ordering Dr: Chas Valente STUDY: X-RAY - RIGHT SHOULDER REASON FOR EXAM: Female, 53 years old. Chronic pain. Recent fall. TECHNIQUE: 3 view(s) of the shoulder. COMPARISON: None. FINDINGS: Normal glenohumeral articulation. Normal acromioclavicular joint. Normal acromion. Normal humeral head and visualized proximal humerus. The soft tissue structures are unremarkable. Normal visualized pulmonary apex. RAD/Shoulder min 2 Views IMPRESSION: Normal x-ray examination of the shoulder. Electronically Signed: Rizwan Odonnell MD at 14:11 EST Tel [phone], Service support , CC: JAMES Valente; Muna Corral DO Food And Beverage Server: Signed CNCO Observed: 08/06/2018 Status: COMPLETED Source: [place] 9:57 AM [facility] REPOSITORY HNO ID: [id number] Author: Mammography Coordinator Service: (none) Author Type: Physician Type: Letter Filed: 08/07/2018 11:31 PM Note Text: August 06, 2018 PID: [id number] Leelee DarioFrancesco Pineda [address] [place] [address] Dear Ms. Pineda, We are pleased to inform you that the results of your recent breast imaging exam on 08/06/2018 are normal. Your mammogram demonstrates that you have dense breast tissue, which could hide abnormalities. Dense breast tissue, in and of itself, is a relatively common condition. Therefore, this information is not provided to cause undue concern; rather, it is to raise your awareness and promote discussion with your health care provider regarding the presence of dense breast tissue in addition to other risk factors. Early detection of cancer is very important. We also understand recommendations regarding breast cancer screening are controversial. Please discuss with your primary care provider which strategy is best for you and whether a mammogram is right for you. Your imaging studies and report will be kept on file at [facility] as part of your permanent medical record and are available for your continuing care. Thank you for allowing us to help in meeting your health care needs. Sincerely, Dr. Andres Interpreting Radiologist [facility] (Normal over 40) [facility] SCREENING Observed: 08/06/2018 Status: F Source: [place] 9:03 AM [facility] REPOSITORY * * *Final Report* * * DATE OF EXAM: Aug 06 2018 9:03AM WOW 0581 - [facility] SCREENING / PROCEDURE REASON: Encounter for screening mammogram for malignant neoplasm of breast * * * * Physician Interpretation * * * * RESULT: #[id number] - [facility] SCREENING BILATERAL DIGITAL SCREENING MAMMOGRAM WITH CAD: 08/06/2018 HISTORY: Screening Mammogram - patient reports NO breast symptoms /priors available for comparison. RESULT: TECHNIQUE: The study was acquired using full field digital technology and interpreted from soft copy. Current study was also evaluated with a Computer Aided Detection (CAD). Comparison is made to exams dated: 08/10/2016 mammogram, 02/24/2015 mammogram, 02/15/2014 mammogram, and 01/19/2013 mammogram - [facility]. The tissue of both breasts is heterogeneously dense. This may lower the sensitivity of mammography. There is a biopsy clip in the left breast. No significant masses, calcifications, or other findings are seen in either breast. There has been no significant interval change. IMPRESSION: NEGATIVE There is no mammographic evidence of malignancy.A 1 year screening mammogram is recommended. Reese hummel/penlita:08/06/2018 09:57:01 Bow Repairer Custom: Francine ARREDONDO(R)(Karla), [facility] letter sent: Normal over 40 Mammogram BI-RADS: 1 Negative Multiple national specialty organizations have released breast cancer screening guidelines for women at average risk for developing breast cancer - guidelines that are based on both evidence and opinion, yet differ on when to start and how often to screen for breast cancer. With representation from Breast Imaging, Internal Medicine, Women's Health, Family Medicine, and Medical/Surgical Oncology, the [facility] has carefully reviewed the data and reached the following consensus: 1) All women should engage in shared decision-making with their providers to decide when to start and how often to screen; 2) All women should have the opportunity to start screening mammography at age 40; 3) For women ages 45-55, we recommend annual screening mammograms; 4) For women ages 55 and over, we support both the transition from an annual to a biennial interval if this aligns more with patient's values and preferences, or continuation with annual screening; 5) All women should discuss with their providers when to stop screening mammograms. Food And Beverage Server: Mandy Transcribe Date/Time: Aug 06 2018 8:18A Dictated by: REESE ANDRES MD This examination was interpreted and the report reviewed and electronically signed by: REESE ANDRES MD on Aug 06 2018 9:57AM EST [id number] [id number] Observed: 08/06/2018 Status: COMPLETED Source: [place] 8:17 AM [facility] O ID: [id number] Author: Nisha Arredondo Service: (none) Author Type: (none) Type: Progress Notes Filed: 08/06/2018 8:17 AM Note Text: Radiology Service Progress Note PATIENT NAME: Leelee Pineda DATE OF SERVICE: August 06, 2018 TIME: 8:17 AM PATIENT IDENTITY VERIFICATION COMPLETED USING TWO (2) METHODS: Patient confirmed name verbally and Date of . PATIENT GENDER DATA: Female. status: : No status: NO. PATIENT RELEVANT IMPLANT DATA REVIEWED: Not Applicable RADIOLOGY DEPARTMENT: [facility] DATA: Not applicable SIGNED BY: Nisha Arredondo August 06, 2018 8:17 AM BRAIN/HEAD WITHOUT Observed: 04/21/2018 Status: F Source: [place] CONTR[place] 7:07 AM [facility] REPOSITORY [facility] Imaging Services [address] [place] [id number] Brain/Head without Contrast MR#: [id number] Acct: [id number] Name: LEELEE PINEDA Rep #: [id number] : 1965 F 52 From: Rizwan Odonnell MD PCP: Muna Corral DO Status: REG CLI Study: Brain/Head without Contrast Date of Exam: 04/21/18 Exam# [id number] Ordering Dr: Muna Corral DO STUDY: CT BRAIN WITHOUT CONTRAST REASON FOR EXAM: Female, 52 years old. Left occipital and temporal headaches. History of migraines. RADIATION DOSAGE (If Supplied By Facility): CTDIvol = ( 44.99 ) mGy, DLP = ( 745.49 ) mGycm TECHNIQUE: Transaxial CT imaging of the brain was performed without administration of intravenous contrast material. Individualized dose optimization techniques were used for this CT. COMPARISON: None. FINDINGS: Normal soft tissue structures. Normal calvarium. Normal size ventricles and extra-axial spaces for the patient's age. Normal white matter tracts of the cerebral hemispheres. Normal basal ganglia and thalami. Normal brainstem. Normal cerebellum. There is no intracranial hemorrhage. There are no findings of an acute ischemic infarction. Normal visualized paranasal sinuses. CT/Brain/Head without Contrast IMPRESSION: Normal unenhanced CT scan of the brain. Electronically Signed: Rizwan Odonnell MD at 10:09 EDT Tel [phone], Service support , CC: Muna Corral DO Food And Beverage Server: Signed ALLERGIES ALLERGIES DATE TYPE / CODE NAME / CODE REACTION SEVERITY SOURCE 04/19/2015 Drug No Known Unknown [facility] Allergy/416 Allergies/M47040 [facility] 047653(SNOM 0388(RXNORM) Repository ED CT) 01/19/2013 Environ/420 SEASONAL ITCHING [facility] 064012(SNOM ALLERGIES [facility] [place] [facility]) Repository ENCOUNTERS ENCOUNTERS ADMIT/DISCHARGE ACCOUNT ADMITTING ENCOUNTER LOCATION SOURCE NUMBER CLASS 10/22/2018/10/23/19 [id number] Ambulatory [address] Repository 09/29/2018/09/29/20 [id number] Ambulatory BMSBuilding:B [place] [facility] Repository 09/24/2018 [id number] [facility] ing:MRI Repository 09/16/2018 [id number] [facility] ing:HPRAD Repository 09/16/2018/09/16/20 [id number] Ambulatory BMSBuilding:B [place] [facility] Repository 08/06/2018/08/06/20 [id number] Ambulatory [address] Repository 04/21/2018 [id number] [facility] [place] [facility] PAYERS PAYERS ENCOUNTER GUARANTOR PAYER SUBSCRIBER SOURCE 09/29/2018 BALDEMAR Samuels Primary Insurance:UMR BALDEMAR R [place] [id number] [place] [address]Kwcaiz RIFFELDOB: [address] Number: [id number] Hospital [address]Cwq: (419 [id number] Repository [phone] () Date:[id number] [address] [address]LR: 09/29/2018 Secondary NOT GIVENUNK [place] Insurance:SELF PAY [facility] Number: Effective Repository Date:2018-09-26 09/24/2018 BALDEMAR R Primary Insurance:UMR BALDEMAR R [place] [id number] [place] [address]Sgbiag RIFFELDOB: [address] Number: [id number] Hospital [address]Dsv: [phone]) [id number] Repository [phone] () Date:[id number] [address] [address]SR: 09/24/2018 Secondary NOT GIVENUNK [place] Insurance:SELF PAY [facility] Number: Effective Repository Date:2018-09-19 09/16/2018 BALDEMAR R Primary Insurance:UMR BALDEMAR R [place] [id number] [place] [address]Onrdtt RIFFELDOB: [address] Number: [id number] Hospital [address]Xpw: ([phone] [id number] Repository [phone] () Date:1634-04-14RX[address] [address]HS: 09/16/2018 Secondary NOT GIVENUNK [place] Insurance:SELF PAY [facility] Effective Repository Date:2018-09-16 09/16/2018 BALDEMAR Samuels Primary Insurance:UMR BALDEMAR Samuels [place] [id number] [facility] [place] [address]Iekyht [facility] [address] Number: [id number] Hospital [address]Wkb: ([phone]) [id number] Repository [phone] () Date:[id number] [address] [address]OO: 09/16/2018 Secondary NOT GIVENUNK [place] Insurance:SELF PAY [facility] Number: Effective Repository Date:2018-09-16 04/21/2018 BALDEMAR Samuels Primary Insurance:UMR BALDEMAR Samuels [place] [id number] [facility] [place] [address]Gwwwta [facility] [address] Number: [id number] Hospital [address]Rsu: ([phone]) [id number] Repository [phone] () Date:6036-28-68HG [address] [place] [address]UB: 04/21/2018 Secondary NOT GIVENUNK [place] Insurance:SELF PAY [facility] Number: Effective Repository Date:2018-04-02
== END ==
PROVIDERS: Family Provider Internal Medicine; PCP Internal Medicine; Referring Provider Physician Assistant; Visit Provider Physician Assistant
DX: M75.101 Unspecified rotator cuff tear or rupture of right shoulder, not specified as traumatic (principal)
CPT/HCPCS: 73221

== ENCOUNTER → 2019-05-18 13:03 | Outpatient (CLI) | payer OTHER, SELFPAY ==
--- NOTE | 2019-05-18 13:10 | RAD_ITS ---
STUDY: X-RAY - LEFT KNEE REASON FOR EXAM: Female, 53 years old. Pain following a twisting injury. TECHNIQUE: 4 view(s) of the knee. COMPARISON: None. FINDINGS: Normal visualized distal femur. Normal visualized proximal tibia and fibula. Normal proximal tibiofibular articulation. Normal medial femorotibial compartment. Normal lateral femorotibial compartment. Normal patellofemoral articulation. The soft tissue structures are unremarkable. RAD/Knee 4 or More Views IMPRESSION: Normal x-ray examination of the knee. Electronically Signed: Rizwan Odonnell, at 14:33 EDT , Service support ,
--- NOTE | 2019-05-18 13:20 | RAD_ITS ---
STUDY: X-RAY - LEFT FOOT CLINICAL: Female, 53 years old. Lateral pain following a twisting injury. TECHNIQUE: 3 view(s) of the foot. COMPARISON: None. FINDINGS: Plantar spur. Normal visualized subtalar, talonavicular, calcaneocuboid, tarsal and tarsometatarsal articulations. Normal metatarsi. Normal metatarsophalangeal joint of the great toe. Normal tibial and fibular sesamoid bones. Normal interphalangeal joint of the great toe. Normal phalanges of the great toe. Normal second through fifth metatarsophalangeal joints. Normal interphalangeal joints and phalanges of the lesser toes. Dorsal soft tissue swelling. RAD/Foot min 3 Views IMPRESSION: Plantar spur. Dorsal soft tissue swelling. Electronically Signed: Rizwan Odonnell, at 14:31 EDT , Service support ,
== END ==
PROVIDERS: Family Provider Internal Medicine; PCP Internal Medicine; Referring Provider Nurse Practitioner; Visit Provider Nurse Practitioner
DX: M79.672 Pain in left foot (principal); M25.562 Pain in left knee
CPT/HCPCS: 73564; 73630

== ENCOUNTER → 2019-06-01 15:29 | Outpatient (CLI) | payer OTHER, SELFPAY ==
[2019-05-21 08:24] VITALS: BMI 32.8
--- NOTE | 2019-06-01 15:31 | MRI_ITS ---
STUDY: MRI LEFT KNEE REASON FOR EXAM: Female, 53 years old. Pain. Recent fall. TECHNIQUE: Standardized fat and water weighted pulse sequences were obtained in all 3 orthogonal planes. COMPARISON: X-ray May 18, 2019. FINDINGS: There is loss of substance with medial meniscus tear at the junction of the anterior horn and body, series 7 images through . Normal hyaline cartilage of the medial femorotibial compartment. Normal medial femoral condyle and tibial plateau. Normal medial collateral ligamentous complex (MCL). Normal distal semimembranosus, gracilis and semitendinosus tendons. Normal lateral meniscus. Normal hyaline cartilage of the lateral femorotibial compartment. Normal lateral femoral condyle and tibial plateau. Normal proximal tibiofibular articulation. Normal lateral collateral (fibular) ligament. Normal popliteus tendon. Normal biceps femoris tendon. Normal anterior cruciate ligament (ACL). Normal posterior cruciate ligament (PCL). Normal congruent patellofemoral articulation. Normal hyaline cartilage of the patellofemoral compartment. Normal medial and lateral patellar retinaculum. Normal quadriceps tendon. Normal patellar tendon. Normal Hoffa's fat pad. There is a small volume joint effusion. The soft tissues are unremarkable. The otherwise visualized osseous structures are unremarkable. MRI/Lower Ext Joint Only (Routine) IMPRESSION: Medial meniscus tear. Small joint effusion. Electronically Signed: Robe Herr MD at 16:56 EDT , Service support ,
== END ==
PROVIDERS: Family Provider Internal Medicine; PCP Internal Medicine; Referring Provider Physician Assistant; Visit Provider Physician Assistant
DX: M23.92 Unspecified internal derangement of left knee (principal); M25.562 Pain in left knee
CPT/HCPCS: 73721

== ENCOUNTER 2019-06-24 08:25 | Day surgery (SDC) | payer OTHER, SELFPAY ==
[2019-06-04 12:44] VITALS: BMI 32.8
[2019-06-24] VITALS (7 sets, daily range): BP systolic 106–136; BP diastolic 53–70; PULSE 60–79; RESP 16; TEMP 36.2–37.3; O2SAT 94–100; BMI 31.2
[2019-06-24] MEDS: Lactated Ringers 1,000 ML 100 ML IV ×2 (08:57→13:34)
[2019-06-24 09:20] LABS: Bedside Glucose 114 mg/dL (70-110)
[2019-06-24] MEDS: Cefazolin 2 GM in 0.9% Normal Saline 100 ML IV (12:17)
[2019-06-24] MEDS: Epinephrine (1 mg/ml) 1 MG/ML VIAL (12:27)
--- NOTE | 2019-06-24 12:45 | DCINST_ITS ---
Discharge Diet: No Restrictions - ttwb left leg with crutches, follow up on saturday for dressing change and brace adjustment with Javier, february ROM 0-40degrees while seated, brace locked in extension during ambulation and at night, call with concerns Discharge Activity: May Not Drive May shower in (days): 1 Ice area for (Minutes): 20 - Every hour while awake. Weight Bearing Status: Weight bearing as tolerated Keep extremity elevated above heart level: Operative Extremity Call your doctor if your incision/area has: Continuous Slow Oozing, Sudden Increased Bleeding, Increased Pain/ Swelling, Increased Redness, Foul Smelling Discharge Call your doctor if you observe: Fever of 101 or Higher, Coldness, Increased Pain, Numbness or Tingling, Change in Color, Calf discomfort Allergies/Adverse Reactions: Allergies No Known Allergies Allergy (Verified 06/16/19 14:09) Medications to take at Discharge metFORMIN HCl [Glucophage] 500 mg PO DAILY 04/19/15 Aspirin [Aspir 81] 81 mg PO DAILY 06/16/19 Ibuprofen [Motrin] 600 mg PO Q6H PRN PRN 06/16/19 Omeprazole [Prilosec] 20 mg PO DAILY 06/16/19 Sumatriptan Succinate [Imitrex] 100 mg PO PRN PRN 06/16/19 Hydrocodone Bitart/Apap 5-325 [[place] 5MG-325MG] 1 - 2 tablet PO Q6H PRN PRN 5 Days #40 tablet 06/24/19 The following prescriptions were given: Hydrocodone Bitart/Apap 5-325 [[place] 5MG-325MG] 1 - 2 tablet PO Q6H PRN PRN 5 Days #40 tablet PRN Reason: Pain Transmission Status: Sent to [facility] Primary Care Physician: Muna Corral DO [Primary Care Provider] - Test Results: Test results from this visit will be discussed in further detail at your follow- up appointment, if applicable. Please Follow Up With: Valentina Montes DO - [phone]
--- NOTE | 2019-06-24 12:46 | HP.PCM_ITS ---
History and Physical I have re-examined the patient. There are no clinical changes since date of exam. Intake Vital Signs 05/21/19 Body Mass Index (BMI) 32.8 Intake Visit Reasons: Left Leg Is patient in pain?: Yes Allergies No Known Allergies Allergy (Verified 04/19/15 21:20) [facility] Social History (Updated 05/21/19 @ 08:51 by JAMES Sandra) Smoking Status: Never smoker HPI Left Leg: Details: Parts of this documentation were recorded by a scribe, this documentation accurately reflects the service provided and the decisions made by me, JAMES Sandra 05/21/19 0823. LEELEE SEYMOUR is a 53 year old F here today for left knee pain. Patient states that three weeks ago she fell in [place] when she slipped on water. She landed directly on the left knee and forced hyperflexion at the same time. Today she continues to have swelling, pain in medial greater than lateral joint lines and pain in posterior knee with prolonged standing. Denies numbness, tingling or other associated symptoms. Ortho Exam Left Knee Skin/Wound: No ecchymosis, No erythema, Yes swelling Contralateral Normal: Yes Knee ROM: No ROM-Extension -20 to 0, No ROM-Flexion 0-140 Examination: Yes med jt line tenderness, Yes Lat jt line tenderness (Minor), No Crepitus, Yes Pain with flexion, Yes Juan's Test Quad Atrophy: No Stability: NML: Anterior Drawer (No laxity but discomfort with maneuver), NML: Posterior Drawer, NML: Varus 30, 1+: Valgus 30 KNEE: No acute abnormalities on inspection. She does have some minor generalized swelling of the knee without evident effusion. He does not have any ecchymosis/bruising, erythema, or other skin changes. Patient is lacking full range of motion in both flexion and extension compared to the right. She has evident reproducible tenderness on medial joint line and positive meniscus signs. No obvious laxity with ACL at the same time does have pain with anterior drawer. no r/r/w no abd pain no audible bruits Assessment & Plan Problems 1. Acute pain of left knee M25.562 2. Injury of left knee, initial encounter S89.92XA 3. Internal derangement of left knee M23.92 Plan Left knee pain post fall where there was hyperflexion and twisting. Patient after 4 weeks is still unable to fully flex or extend the knee. This symptom as well as her physical exam findings today are suggestive of medial meniscus involvement. We did discuss a possible ACL sprain. Patient to continue ice and anti-inflammatories along with elevation. At this time with mechanical symptoms after 4 weeks we will proceed with MRI of the left knee to evaluate soft tissue structures. Patient will follow-up in our office following the MRI to review these findings. Patient has no other questions at this time. This note was generated with Teamer.netation software. It may contain incorrect words, spelling, and punctuation that were not noted in checking the note before signing. Orders Orders: Lower Ext Joint Only (Routine) Today M23.92, M25.562, S89.92XA Coding Level of Care Code Off vis,est,level 3 Diagnoses Acute pain of left knee M25.562 ??Chronicity: acute Injury of left knee, initial encounter S89.92XA ??Encounter type: initial encounter Internal derangement of left knee M23.92
--- NOTE | 2019-06-24 12:47 | PCM.OPRPT ---
Report of Operation Date of Procedure: 06/24/19 Pre-Operative Diagnosis: left knee medial meniscus tear, synovitis Post-Operative Diagnosis: khang, anurag men repair, synovectomy senior compensation consultant: Chas Valente Type of Anesthesia:: General Anesthesiologist: Jai Carcamo Estimated Blood Loss (mL): minimal Fluids Replaced: 800cc lr Description of Procedure: Preop note Patient is a 53-year-old female with continued left medial sided knee pain instability MRI confirms a medial meniscus tear patient failed conservative treatment like to proceed with left knee arthroscopy repair as indicated. Risk benefits alternatives surgery discussed with patient. Risks include but not limited to blood loss, blood clot, infection, neurovascular, failure procedure, loss of life and loss of limb. Patient is aware like proceed with left knee arthroscopy repair as indicated. Next Operative note Patient seen and examined preoperative holding area. Left knee was marked. Patient brought to the operating placed supine the operating table. Signed, anesthesia, antibiotics were mate fishing vessel. The left knee was prepped and draped in usual sterile fashion with a tourniquet around her upper thigh. All bony problems well-padded SCDs placed on her contralateral limb. We then marked out our anterior lateral anteromedial portal placement. The left leg was then elevated same any triggers rates up to a pressure of 250 torr. Timeout was performed. We then began with our diagnostic arthroscopy. We created a anterolateral portal with an 11 blade began a diagnostic arthroscopy visualize the patellofemoral joint which was intact moved to the medial joint line she had extensive synovitis in the anteromedial recess which was we created an anterior medial portal under direct position. We then resected back the anteromedial anterolateral synovitis that was extensive throughout. We then inserted probed she had an unstable medial meniscus tear at the junction of the anterior horn and midbody. We then rasped the tear and in place to reverse curved FasT-Fix 350 devices in a horizontal mattress configuration across the repair. We then reinserted our probe we had good stable repair. The ACL PCL were present within the notch. The lateral meniscus lateral femoral condyle lateral tibial plateau were intact and stable probing. The lateral femoral condyle lateral tibial plateau were intact and stable probing. There is some fibrillated changes on the medial femoral condyle from abrasion from the synovitis that was gently resected as well. The knee was irrigated with copious nonsterile saline. The tourniquet was raised to deflated for a total working time of 22 minutes. Sterile dressings were applied applied after the portals were closed with interrupted interrupted 4-0 nylon sutures. Sterile dressings and a brace was applied brace will be locked in extension during ambulation at night and 0-40 while seated. Patient transferred to recovery room in stable condition there are no comp occasions. Next Postoperative note Toe-touch weightbearing left leg next Call with increased pain numbness tingling or further issues arise Follow-up on Saturday with Javier for dressing changes We will give family pictures in 2 weeks Hospital pharmacy has prescriptions that This note was generated with KartRocket dictation software. It may contain incorrect words, spelling, and punctuation that were not noted in checking the note before signing.
[2019-06-24] MEDS: Mupirocin Ointment 22gm Tube 1 APPLIC (12:53)
[2019-06-24] MEDS: Ondansetron 4 MG/2 ML Vial IV (14:47)
== END 2019-06-24 15:13 | disposition home or self-care (01) ==
LOC: SDC 08:28 → AC 08:28
PROVIDERS: Family Provider Internal Medicine; PCP Internal Medicine; Referring Provider Orthopaedic Surgery; Visit Provider Orthopaedic Surgery
PROC: (CPT 29870; principal; 2019-06-24 09:40)
DX: S83.242A Other tear of medial meniscus, current injury, left knee, initial encounter (principal); M65.862 Other synovitis and tenosynovitis, left lower leg; W01.0XXA Fall on same level from slipping, tripping and stumbling without subsequent striking against object, initial encounter; Y93.9 Activity, unspecified; Y92.9 Unspecified place or not applicable; Y99.9 Unspecified external cause status; E11.9 Type 2 diabetes mellitus without complications; K21.9 Gastro-esophageal reflux disease without esophagitis; F17.290 Nicotine dependence, other tobacco product, uncomplicated; Z79.84 Long term (current) use of oral hypoglycemic drugs; Z79.82 Long term (current) use of aspirin; Z79.899 Other long term (current) drug therapy; I25.2 Old myocardial infarction; Z85.828 Personal history of other malignant neoplasm of skin
CPT/HCPCS: 01400; 29882; 64447; 82962; J7120; J2405